=== PATIENT | male | born 2005 | race African-American/Black ===

== ENCOUNTER 2025-03-21 12:16 | Inpatient (IN) | payer OTHER ==
[~2025-03-21] VITALS: Ht 167.6 cm; Wt 70.8 kg
[2025-03-21 13:21] LABS: HEMATOCRIT 46.2 % (42.0-52.0); MEAN CORPUSCULAR HEMOGLOBIN 28.7 pg (27.0-33.0); MEAN CORPUSCULAR HGB CONC 32.5 g/dl (32.0-36.5); MEAN CORPUSCULAR VOLUME 88.3 fl (80.0-96.0); PLATELET COUNT, AUTOMATED 197 10^3/uL (150-450); RED BLOOD COUNT 5.23 10^6/uL (4.30-6.10)
[2025-03-21 13:39] LABS: ETHYL ALCOHOL (ETHANOL) 0.003 % (0.000-0.010)
[2025-03-21 13:40] LABS: SALICYLATE LEVEL < 3.0 MG/DL (<30)
[2025-03-21 13:41] LABS: ALBUMIN 4.1 G/DL (3.2-5.2); ALKALINE PHOSPHATASE 96 U/L (40-129); ALT/SGPT 66 U/L (7.0-40); AST/SGOT 27 U/L (<34); BILIRUBIN,DIRECT 0.3 MG/DL (<0.4); BILIRUBIN,TOTAL 0.8 MG/DL (0.3-1.2); BLOOD UREA NITROGEN 13 MG/DL (9-23); CALCIUM LEVEL 9.3 MG/DL (8.5-10.1); CARBON DIOXIDE LEVEL 29 MMOL/L (20-31); CHLORIDE LEVEL 103 MMOL/L (98-107); CREATININE FOR GFR 1.07 MG/DL (0.70-1.30); GLOMERULAR FILTRATION RATE > 90.0 (>60); GLUCOSE, FASTING 85 MG/DL (60-100); POTASSIUM SERUM 4.2 MMOL/L (3.5-5.1); SODIUM LEVEL 139 MMOL/L (136-145); TOTAL PROTEIN 7.9 G/DL (5.7-8.2)
[2025-03-21 13:42] LABS: THYROID STIMULATING HORMONE 1.133 uIU/ML (0.55-4.78)
[2025-03-21 16:21] LABS: AMPHETAMINES LEVEL URINE NEGATIVE (NEGATIVE); BARBITURATES URINE NEGATIVE (NEGATIVE); BENZODIAZEPINES URINE NEGATIVE (NEGATIVE); COCAINE METABOLITE URINE NEGATIVE (NEGATIVE); METHADONE URINE NEGATIVE (NEGATIVE); OPIATES URINE NEGATIVE (NEGATIVE); PHENCYCLIDINE URINE NEGATIVE (NEGATIVE)
[2025-03-21 16:22] LABS: CANNABINOIDS URINE NEGATIVE (NEGATIVE)
[2025-03-21 17:15] LABS: HIV 1&2 SCREEN NEGATIVE (NEGATIVE)
[2025-03-21] MEDS ORDERED: MAALOX 30 ML SUSP *UDC PO PRN (17:40)
[2025-03-21] MEDS ORDERED: ACETAMINOPHEN 325 MG TAB PO PRN (17:40)
[2025-03-21] MEDS ORDERED: IBUPROFEN 400MG TAB PO PRN (17:40)
[2025-03-21] MEDS ORDERED: diphenhydrAMINE 25MG CAP PO PRN (17:40)
[2025-03-21] MEDS ORDERED: MOM 30ML SUSPENSION UDC PO PRN (17:40)
[2025-03-21] MEDS ORDERED: HOME MED LIST COMPLETE! XX SCH (18:55)
[2025-03-21] MEDS: traZODone 50 MG TAB PO PRN (23:25)
[2025-03-21 23:30] VITALS: BP 113/62; TEMP 97.5; O2SAT 100
[2025-03-22 06:35] VITALS: BP 102/54; TEMP 97.6; O2SAT 97
== END 2025-03-22 11:40 | disposition home or self-care (01) | DRG 881 ==
LOC: M ED 12:16 → M ED INP 17:36 → M PSY 23:11
PROVIDERS: ADMIT Student in an Organized Health Care Education/Training Program; ATTEND Student in an Organized Health Care Education/Training Program
DX: F32.A Depression, unspecified (principal); R45.851 Suicidal ideations; J45.909 Unspecified asthma, uncomplicated; F17.290 Nicotine dependence, other tobacco product, uncomplicated; Z56.6 Other physical and mental strain related to work

== ENCOUNTER 2025-10-09 21:09 | Inpatient (IN) | payer OTHER ==
[~2025-10-09] VITALS: Ht 167.6 cm; Wt 70.5 kg
[2025-10-09 23:25] LABS: PLATELET COUNT, AUTOMATED 188 10^3/uL (150-450)
[2025-10-09 23:49] LABS: ETHYL ALCOHOL (ETHANOL) < 0.003 % (0.000-0.010)
[2025-10-09 23:50] LABS: SALICYLATE LEVEL < 3.0 MG/DL (<30)
[2025-10-09 23:51] LABS: ALT/SGPT 15 U/L (7.0-40); AST/SGOT 27 U/L (<34); CALCIUM LEVEL 8.8 MG/DL (8.5-10.1); CARBON DIOXIDE LEVEL 27 MMOL/L (20-31); CHLORIDE LEVEL 102 MMOL/L (98-107); CREATININE FOR GFR 1.07 MG/DL (0.70-1.30); GLOMERULAR FILTRATION RATE > 90.0 (>60); POTASSIUM SERUM 3.7 MMOL/L (3.5-5.1); SODIUM LEVEL 139 MMOL/L (136-145)
[2025-10-10 02:07] LABS: AMPHETAMINES LEVEL URINE NEGATIVE (NEGATIVE); BARBITURATES URINE NEGATIVE (NEGATIVE); BENZODIAZEPINES URINE NEGATIVE (NEGATIVE); CANNABINOIDS URINE NEGATIVE (NEGATIVE); COCAINE METABOLITE URINE NEGATIVE (NEGATIVE); METHADONE URINE NEGATIVE (NEGATIVE); OPIATES URINE NEGATIVE (NEGATIVE); PHENCYCLIDINE URINE NEGATIVE (NEGATIVE)
[2025-10-10] MEDS ORDERED: ACETAMINOPHEN 325 MG TAB PO PRN (02:40)
[2025-10-10] MEDS ORDERED: IBUPROFEN 400 MG TAB PO PRN (02:40)
[2025-10-10] MEDS ORDERED: MOM 30 ML SUSPENSION UDC PO PRN (02:40)
[2025-10-10] MEDS ORDERED: LORazepam 1 MG TAB PO PRN (02:40)
[2025-10-10] MEDS ORDERED: HALOPERIDOL 5 MG TAB PO PRN (02:40)
[2025-10-10 03:38] VITALS: BP 128/82; TEMP 97.2
[2025-10-10 13:25] LABS: BASO # 0.1 10^3/uL (0.0-0.2); BASO % 0.6 % (0.0-1.0); EOS # 0.3 10^3/uL (0.0-0.5); EOS % 2.8 % (0.0-3.0); LYMPH # 1.4 10^3/uL (1.5-5.0); LYMPH % 12.8 % (24.0-44.0); MONO # 0.6 10^3/uL (0.0-0.8); MONO % 5.3 % (2.0-8.0); NEUTROPHILS # 8.8 10^3/uL (1.5-8.5); NEUTROPHILS % 78.1 % (36.0-66.0); PLATELET COUNT, AUTOMATED 191 10^3/uL (150-450)
[2025-10-10 16:15] VITALS: BP 126/76; TEMP 97.8; O2SAT 99
[2025-10-11 06:35] VITALS: BP 119/57; TEMP 97.4; O2SAT 98
[2025-10-11] MEDS: ESCITALOPRAM OXALATE 5 MG TABLET PO SCH (10:14)
[2025-10-11 16:42] VITALS: BP 146/74; TEMP 97.6; O2SAT 97
[2025-10-12 06:25] VITALS: BP 126/63; TEMP 97.6; O2SAT 99
[2025-10-12 15:19] VITALS: BP 134/69; TEMP 98; O2SAT 99
[2025-10-13 06:27] VITALS: BP 132/78; TEMP 97.8; O2SAT 99
[2025-10-13 16:33] VITALS: BP 132/61; TEMP 97.6; O2SAT 99
[2025-10-13] MEDS: traZODone 50 MG TAB PO PRN (21:19)
[2025-10-14 06:19] VITALS: BP 119/60; TEMP 97.2; O2SAT 98
[2025-10-14] MEDS: ESCITALOPRAM OXALATE 10 MG TABLET PO SCH (08:59)
[2025-10-14 14:24] VITALS: BP 142/64; TEMP 98.3; O2SAT 98
[2025-10-15 06:16] VITALS: BP 114/74; TEMP 97.4; O2SAT 98
[2025-10-15] MEDS: MAALOX 30 ML SUSP *UDC PO PRN (13:54)
[2025-10-15 15:05] VITALS: BP 135/84; TEMP 98.2; O2SAT 98
[2025-10-16 06:28] VITALS: BP 114/56; TEMP 97.8; O2SAT 99
[2025-10-16 15:13] VITALS: BP 144/79; TEMP 97.1; O2SAT 98
[2025-10-17 06:36] VITALS: BP 103/54; TEMP 97.8; O2SAT 96
[2025-10-17 15:04] VITALS: BP 118/58; TEMP 98.5; O2SAT 95
[2025-10-18] MEDS ORDERED: TRAZ-252 PO (03:41)
[2025-10-18] MEDS ORDERED: LEXA1TAB PO (03:41)
[2025-10-18 06:35] VITALS: BP 120/58; TEMP 97.4; O2SAT 100
== END 2025-10-18 10:35 | disposition home or self-care (01) | DRG 882 ==
LOC: M ED 22:24 → M ED INP 10-10 02:37 → M PSY 10-10 03:22
PROVIDERS: ADMIT Psychiatry & Neurology Neurology; ATTEND Psychiatry & Neurology Neurology
DX: F43.23 Adjustment disorder with mixed anxiety and depressed mood (principal); R45.851 Suicidal ideations; F41.9 Anxiety disorder, unspecified; Z63.0 Problems in relationship with spouse or partner; Z63.8 Other specified problems related to primary support group